=== PATIENT | male | born 1980 | race Caucasian/White ===

== ENCOUNTER 2018-02-10 07:50 | Emergency (ER) | payer MEDICAID, OTHER ==
[~2018-02-10] VITALS: Ht 182.9 cm; Wt 99.8 kg
[2018-02-10 08:03] VITALS: BP 147/89
[2018-02-10 09:02] VITALS: BP 147/89
== END 2018-02-10 09:03 | disposition home or self-care (01) ==
LOC: MED 07:50
DX: G62.9 Polyneuropathy, unspecified (principal); R03.0 Elevated blood-pressure reading, without diagnosis of hypertension
CPT/HCPCS: 72040; 99284